=== PATIENT | male | born 1945 | race Hispanic/Latino ===

== ENCOUNTER 2019-02-03 12:15 | Emergency (ER) | payer OTHER ==
[~2019-02-03 12:15] MED LIST: ASPI-555 PO; FENO50CA4 PO; TAMS0.4C32 PO
[2019-02-03 13:14] LABS: BASOPHILS % (AUTO) 0.3 % (0.0-5.0); EOSINOPHILS % (AUTO) 0.3 % (0.0-8.0); HEMATOCRIT 40.1 % (42-54); LYMPHOCYTES % (AUTO) 4.3 % (21.0-51.0); MEAN CORPUSCULAR HEMOGLOBIN 31.3 pg (27.0-33.0); MEAN CORPUSCULAR HGB CONC 34.6 g/dL (32.0-36.0); MEAN CORPUSCULAR VOLUME 90.4 fL (79-99); MONOCYTES % (AUTO) 4.3 % (3.0-13.0); NEUTROPHILS % (AUTO) 90.8 % (40.0-77.0); PLATELET COUNT (AUTO) 183 K/uL (130-400); RED BLOOD CELL COUNT(AUTO) 4.44 MIL/uL (4.50-6.20); RED CELL DISTRIBUTION WIDTH 13.7 % (11.0-15.5); WHITE BLOOD COUNT (AUTO) 7.9 K/uL (4.8-10.8)
[2019-02-03 13:23] LABS: CREATININE 1.2 mg/dL (0.5-1.5); POTASSIUM 3.7 mmol/L (3.5-5.1)
[2019-02-03 13:25] LABS: ALBUMIN 4.2 g/dL (3.5-5.0); BILIRUBIN,DIRECT 0.2 mg/dL (0.0-0.3); BILIRUBIN,TOTAL 0.7 mg/dL (0.2-1.0); TOTAL PROTEIN, SERUM 7.3 g/dL (6.0-8.3)
[2019-02-03] MEDS ORDERED: ONDANSETRON HCL 4 MG/2 ML VIAL ONE (13:28)
== END 2019-02-03 15:34 | disposition home or self-care (01) ==
LOC: EDH 12:15
DX: K52.9 Noninfective gastroenteritis and colitis, unspecified (principal)
CPT/HCPCS: 36415; 74176; 80048; 80076; 83690; 85025; 93005; 96361; 96374; 99284; J2405

== ENCOUNTER 2019-05-12 13:10 | Inpatient (IN) | payer OTHER ==
[~2019-05-12] VITALS: Ht 170.2 cm; Wt 80.1 kg
[2019-05-12] MEDS ORDERED: SODIUM CHLORIDE 0.9% 1000ML 0 ML IV ONE (13:22)
[2019-05-12 13:40] LABS: EOSINOPHILS % (AUTO) 11.6 % (0.0-8.0); HEMATOCRIT 39.5 % (42-54); LYMPHOCYTES % (AUTO) 19.5 % (21.0-51.0); MEAN CORPUSCULAR HEMOGLOBIN 30.8 pg (27.0-33.0); MEAN CORPUSCULAR HGB CONC 34.1 g/dL (32.0-36.0); MEAN CORPUSCULAR VOLUME 90.3 fL (79-99); MONOCYTES % (AUTO) 5.3 % (3.0-13.0); NEUTROPHILS % (AUTO) 62.6 % (40.0-77.0); PLATELET COUNT (AUTO) 208 K/uL (130-400); RED BLOOD CELL COUNT(AUTO) 4.38 MIL/uL (4.50-6.20); RED CELL DISTRIBUTION WIDTH 13.7 % (11.0-15.5); WHITE BLOOD COUNT (AUTO) 8.6 K/uL (4.8-10.8)
[2019-05-12 13:50] LABS: CREATININE 1.2 mg/dL (0.5-1.5)
[2019-05-12 13:54] LABS: ALBUMIN 4.1 g/dL (3.5-5.0); BILIRUBIN,TOTAL 0.4 mg/dL (0.2-1.0); TOTAL PROTEIN, SERUM 7.2 g/dL (6.0-8.3)
[2019-05-12 14:01] LABS: APPEARANCE,URINE Clear (CLEAR); BILIRUBIN,URINE Negative (NEGATIVE); COLOR,URINE Yellow (YELLOW); GLUCOSE, URINE (UA) Negative (NEGATIVE); KETONES,URINE Negative (NEGATIVE); LEUKOCYTE ESTERASE ,URINE Negative (NEGATIVE); NITRATE,URINE Negative (NEGATIVE); OCCULT BLOOD,URINE Negative (NEGATIVE); PROTEIN,URINE Negative (NEGATIVE)
[2019-05-12] MEDS ORDERED: IOHEXOL-350 75 ML VIAL IV ONE (14:31)
[2019-05-12] MEDS ORDERED: SODIUM CHLORIDE 0.9% 1000ML 1,000 ML IV ONE (14:51)
[2019-05-12] MEDS: LACTATED RINGERS 1000ML 1,000 ML IV SCH (15:43)
[2019-05-12] MEDS ORDERED: ACETAMINOPHEN-CODEINE 300/30MG TAB PO PRN (15:45)
[2019-05-12] MEDS ORDERED: ALBUTEROL SULFATE 0.083% 2.5 MG/3 ML INH IH PRN (15:45)
[2019-05-12] MEDS ORDERED: HYDROMORPHONE 1 MG/1 ML AMP ONE (16:19)
--- NOTE | 2019-05-12 17:30 | NUR ---
Admitted from the ER with c/o N&V, presents with NGT to right cadet, low intermittent suction. Addendum: 05/12/19 at 2041 by QUINN HUNTER RN RN Amended: Links added.
[2019-05-12 20:00] VITALS: BP 139/79
[2019-05-12] MEDS ORDERED: LISI10TA7 PO (20:47)
[2019-05-12] MEDS: FAMOTIDINE/PF 20 MG/2 ML VIAL IV SCH (20:57)
[2019-05-12] MEDS: HYDROMORPHONE 1 MG/1 ML AMP IV PRN (20:58)
[2019-05-13] VITALS: BP 127/68
[2019-05-13 04:00] VITALS: BP 134/64
[2019-05-13] MEDS: LACTATED RINGERS 1000ML 1,000 ML IV SCH ×2 (05:03→18:44)
[2019-05-13 07:36] VITALS: BP 128/68
[2019-05-13] MEDS: FAMOTIDINE/PF 20 MG/2 ML VIAL IV SCH ×2 (08:41→20:07)
[2019-05-13] MEDS: HYDROMORPHONE 1 MG/1 ML AMP IV PRN ×2 (08:45→18:57)
[2019-05-13] MEDS ORDERED: ONDANSETRON HCL 4 MG/2 ML VIAL IVP PRN (11:00)
[2019-05-13 12:00] VITALS: BP 134/65
[2019-05-13 15:22] VITALS: BP 139/67
[2019-05-13 19:00] VITALS: BP 142/85
[2019-05-13] MEDS: TAMSULOSIN HCL 0.4 MG CAP.ER.24H PO SCH (20:07)
[2019-05-14] VITALS: BP 138/79
[2019-05-14 04:00] VITALS: BP 139/78
[2019-05-14] MEDS: LACTATED RINGERS 1000ML 1,000 ML IV SCH (05:30)
[2019-05-14 05:54] LABS: CREATININE 1.1 mg/dL (0.5-1.5); POTASSIUM 4.1 mmol/L (3.5-5.1)
[2019-05-14 08:00] VITALS: BP 163/78
[2019-05-14] MEDS: LISINOPRIL 10 MG TABLET PO SCH (10:15)
[2019-05-14] MEDS: FAMOTIDINE/PF 20 MG/2 ML VIAL IV SCH ×2 (10:15→21:18)
[2019-05-14] MEDS: TAMSULOSIN HCL 0.4 MG CAP.ER.24H PO SCH ×2 (10:15→21:18)
[2019-05-14] MEDS: ASPIRIN 81 MG EC TAB PO SCH (10:16)
[2019-05-14 12:00] VITALS: BP 150/90
--- NOTE | 2019-05-14 15:20 | NUR ---
Notified pt. will remove NGT and start clear liquid diet, explained what to expect. Removed tube without any difficulty, pt. tolerated well.
[2019-05-14 16:00] VITALS: BP 178/79
--- NOTE | 2019-05-14 16:06 | NUR ---
INITIAL: Met with pt/spouse and dtr Franchesca this afternoon to discuss dcp. Pt states that he lives w spouse. Prior to admission he was independent w ambulation and aDLs. Does not own any DME or receive services. He states that he feels safe and comfortable to return home at ne. CM to continue to follow and wait for Md recommendations. Addendum: 05/14/19 at 1608 by SAJI SANFORD Amended: Links added.
[2019-05-14 19:00] VITALS: BP 146/81
[2019-05-15] VITALS: BP 128/75
[2019-05-15 04:00] VITALS: BP 131/75
[2019-05-15 08:00] VITALS: BP 117/60
[2019-05-15] MEDS: TAMSULOSIN HCL 0.4 MG CAP.ER.24H PO SCH (11:45)
[2019-05-15] MEDS: FAMOTIDINE/PF 20 MG/2 ML VIAL IV SCH (11:45)
[2019-05-15] MEDS: ASPIRIN 81 MG EC TAB PO SCH (11:45)
[2019-05-15] MEDS: LISINOPRIL 10 MG TABLET PO SCH (11:45)
[2019-05-15 12:00] VITALS: BP 141/77
== END 2019-05-15 17:20 | disposition home or self-care (01) | DRG 390 ==
LOC: EDH 13:10 → EDHIP 15:43 → OBSVTOIN 15:43 → 3AH 17:30
PROVIDERS: ADMIT Internal Medicine Critical Care Medicine; ATTEND Internal Medicine Critical Care Medicine
PROC: 0D9670Z Drainage of Stomach with Drainage Device, Via Natural or Artificial Opening (ICD-10-PCS; principal; 2019-05-12)
DX: K56.609 Unspecified intestinal obstruction, unspecified as to partial versus complete obstruction (principal); I10 Essential (primary) hypertension; E78.5 Hyperlipidemia, unspecified; N40.0 Benign prostatic hyperplasia without lower urinary tract symptoms; Z79.82 Long term (current) use of aspirin; Z79.899 Other long term (current) drug therapy
CPT/HCPCS: 36415; 74177; 80048; 80053; 81003; 83690; 84484; 85025; 93005; 94664; G0378; J1170; J2405; J3490; J7030; J7120; Q9967

== ENCOUNTER 2024-05-27 21:37 | Emergency (ER) | payer OTHER ==
[~2024-05-27] VITALS: Ht 170.2 cm; Wt 82.6 kg
[~2024-05-27 21:37] MED LIST changes: -ASPI-555 PO; +ASPI-556 PO; +LISI10TA24 PO
[2024-05-27 21:40] VITALS: BP 170/71; PULSE 83; RESP 18
[2024-05-27] MEDS: TETANUS/DIPHTHERIA TOXOID [ADULT] 0.5 ML VIAL IM ONE (22:15)
[2024-05-27] MEDS: LIDOCAINE HCL 1% 20 ML VIAL INJ SCH (22:23)
[2024-05-27] MEDS ORDERED: CEPH500B PO (23:14)
[2024-05-27] MEDS: NEOMY SULF/BACITRA/POLYMYXIN B 1 EACH PACKET TP ONE (23:24)
== END 2024-05-27 23:31 | disposition home or self-care (01) ==
LOC: EDH 21:37
DX: S62.635A Displaced fracture of distal phalanx of left ring finger, initial encounter for closed fracture (principal); S69.92XA Unspecified injury of left wrist, hand and finger(s), initial encounter; I10 Essential (primary) hypertension; Z79.82 Long term (current) use of aspirin; Z79.899 Other long term (current) drug therapy; W23.0XXA Caught, crushed, jammed, or pinched between moving objects, initial encounter; Y93.89 Activity, other specified; Y92.89 Other specified places as the place of occurrence of the external cause; Y99.8 Other external cause status
CPT/HCPCS: 12002; 73140; 90471; 90714